=== PATIENT | female | born 1970 | race Caucasian/White ===

== ENCOUNTER 2023-01-05 22:27 | Emergency (ER) | payer MEDICAID ==
[~2023-01-05] VITALS: Ht 152.4 cm; Wt 78.9 kg
[2023-01-05 23:24] VITALS: BP 168/95
[2023-01-05] MEDS ORDERED: CEPH500T PO ×2 (23:30→23:39)
[2023-01-05] MEDS ORDERED: MUPI22OI2 TP ×2 (23:30→23:39)
[2023-01-05] MEDS ORDERED: SULF1TAB48 PO ×2 (23:30→23:39)
--- NOTE | 2023-01-05 23:50 | NUR ---
Patient discharged to home in stable condition. Written and verbal after care instructions given. Patient verbalizes understanding of instruction.
== END 2023-01-05 23:51 | disposition home or self-care (01) ==
LOC: ER 22:27
DX: A49.02 Methicillin resistant Staphylococcus aureus infection, unspecified site (principal); J34.0 Abscess, furuncle and carbuncle of nose; I10 Essential (primary) hypertension; Z79.899 Other long term (current) drug therapy